=== PATIENT | male | born 1990 | race African-American/Black ===

== ENCOUNTER 2016-04-26 14:41 | Emergency (ER) | payer SELFPAY ==
[2016-04-26 15:09] VITALS: BP 124/59
--- NOTE | 2016-04-26 15:40 | UC ---
Respiratory Complaint HPI - HPI Summary HPI Summary: The patient comes in today for: 1. Poor appetite, cough, nasal congestion, body aches (back pain, headache): Onset: 4 days ago. Palliative/Provocative: Theraflu has helped. Warm beverages help. Quality: Pressure of the sinuses, aching of the lower back, ache of the left head. Region: Sinuses, lower back, and head. Severity: 5/10 Time: Constant. Associated symptoms: Vomiting: x 1 yesterday. Diarrhea: 3-4 liquid brown stools. Fevers: No temperature at home, but sweating at night. Rhinitis: White mucous Cough: green mucous. * - History of Current Complaint Chief Complaint: UCGeneralIllness Stated Complaint: CONGESTION/COUGH/HEADACHE Hx Obtained From: Patient - Allergies/Home Medications Allergies/Adverse Reactions: Allergies Allergy/AdvReac Type Severity Reaction Status Date / Time Erythromycin Allergy Severe Vomiting Verified 04/26/16 15:09 PMH/Surg Hx/FS Hx/Imm Hx Previously Healthy: Yes Endocrine History Of: Denies: Diabetes, Thyroid Disease, Hyperthyroidism, Hypothyroidism, Dyslipidemia Cardiovascular History Of: Denies: Cardiac Disorders, Hypertension, Pacemaker/ICD, Myocardial Infarction , Congestive Heart Failure, Atrial Fibrillation, Deep Vein Thrombosis, Bleeding Disorders Respiratory History Of: Denies: COPD, Asthma, Bronchitis, Pneumonia, Pulmonary Embolism GI/ History Of: Denies: Gastroesophageal Reflux, Ulcer, Gastrointestinal Bleed, Gall Bladder Disease, Kidney Stones, Diverticulitis, Renal Disease, Urosepsis Neurological History Of: Denies: TIA, CVA, Dementia, Seizures, Migraine Psychological History Of: Denies: Anxiety, Depression, Bipolar Disorder, Schizophrenia, Post Traumatic Stress Disorder Cancer History Of: Denies: Lung Cancer, Colorectal Cancer, Breast Cancer, Prostate Cancer, Cervical Cancer Other History Of: Negative For: HIV, Hepatitis B, Anticoagulant Therapy - Surgical History Surgical History: None - Family History Known Family History: Negative: Cardiac Disease, Hypertension, Seizure Disorder, Blood Disorder - Social History Occupation: Employed Full-time Lives: With Family Alcohol Use: Weekly Substance Use Type: None Smoking Status (MU): Light Every Day Tobacco Smoker Type: Cigarettes Amount Used/How Often: 3 PER DAY Length of Time of Smoking/Using Tobacco: 7+ YEARS Review of Systems Constitutional: Negative Skin: Negative Eyes: Negative ENT: Nasal Discharge Respiratory: Cough Cardiovascular: Negative Gastrointestinal: Diarrhea Musculoskeletal: Arthralgia, Myalgia Neurological: Headache All Other Systems Reviewed And Are Negative: Yes Physical Exam Triage Information Reviewed: Yes Appearance: Well-Appearing, No Pain Distress, Well-Nourished Vital Signs: Initial Vital Signs Temp 99.4 F 04/26/16 15:05 Pulse 81 04/26/16 15:05 Resp 16 04/26/16 15:05 BP 124/59 04/26/16 15:05 Pulse Ox 100 04/26/16 15:05 Vital Signs Reviewed: Yes Eyes: Positive: Conjunctiva Clear. Negative: Discharge ENT: Positive: Hearing grossly normal, Nasal drainage. Negative: Pharyngeal erythema, Nasal congestion, TM bulging, TM dull, TM red, Tonsillar swelling, Tonsillar exudate Dental: Negative: Gross Decay/Caries @, Dental Fracture @ Neck: Positive: Supple, Nontender, No Lymphadenopathy. Negative: Nuchal Rigidity Respiratory: Positive: Chest non-tender, Lungs clear, No respiratory distress, No accessory muscle use. Negative: Crackles, Wheezing Cardiovascular: Positive: RRR, No Murmur Abdomen Description: Positive: Nontender, No Organomegaly, Soft. Negative: Distended, Guarding Musculoskeletal: Positive: Strength Intact, ROM Intact Neurological: Positive: Alert, Muscle Tone Normal, Fatigued Psychological: Positive: Age Appropriate Behavior, Consolable Skin: Negative: rashes, breakdown UC Diagnostic Evaluation - Laboratory O2 Sat by Pulse Oximetry: 100 Respiratory Course/Dx - Differential Dx/Diagnosis Differential Diagnosis/HQI/PQRI: Bronchitis, Sinusitis, Other Provider Diagnoses: Viral syndrome. Bronchitis. Sinusitis. Gastroenteritis Discharge - Discharge Plan Condition: Stable Disposition: HOME Patient Education Materials: Sinusitis (ED), Acute Bronchitis (ED), Gastroenteritis (ED), Viral Syndrome (ED) Forms: *Work Release Referrals: No Primary Care Phys,NOPCP [Primary Care Provider] - 1 Week (Please see your primary care provider in about a week to see how well you are doing. If you get worse, please be seen sooner by your primary care provider or us. IF you don't have a primary care provider, please reference the list of local providers included with your discharge papers to get one. )
== END 2016-04-26 16:02 | disposition home or self-care (01) ==
LOC: UCCORT 14:41
DX: B34.9 Viral infection, unspecified (principal); J40 Bronchitis, not specified as acute or chronic; J32.9 Chronic sinusitis, unspecified; K52.9 Noninfective gastroenteritis and colitis, unspecified; Z88.1 Allergy status to other antibiotic agents; F17.210 Nicotine dependence, cigarettes, uncomplicated
CPT/HCPCS: 99212; G0463

== ENCOUNTER 2016-06-26 13:08 | Emergency (ER) | payer SELFPAY ==
[2016-06-26 13:25] VITALS: BP 138/64
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
[2016-06-26] MEDS ORDERED: Ibuprofen TAB* 600 MG PO ONE (13:27)
--- NOTE | 2016-06-26 13:47 | RAD ---
INDICATION: Left fifth finger injury. TECHNIQUE: 3 views of the left fifth finger were obtained. FINDINGS: There is diffuse soft tissue swelling. The bones are normal alignment. No fracture is seen. Joint spaces appear maintained. IMPRESSION: NO EVIDENCE FOR FRACTURE.
== END 2016-06-26 14:00 | disposition home or self-care (01) ==
LOC: UCEAST 13:08
DX: S63.617A Unspecified sprain of left little finger, initial encounter (principal); X58.XXXA Exposure to other specified factors, initial encounter; Y93.89 Activity, other specified; Y92.159 Unspecified place in reform school as the place of occurrence of the external cause; Y99.0 Civilian activity done for income or pay; Z88.1 Allergy status to other antibiotic agents; F17.210 Nicotine dependence, cigarettes, uncomplicated; Z71.6 Tobacco abuse counseling
CPT/HCPCS: 73140; 99212; G0463

== ENCOUNTER 2016-10-08 12:04 | Emergency (ER) | payer SELFPAY ==
--- NOTE | 2016-10-08 13:39 | UC ---
Upper Extremity HPI - HPI Summary HPI Summary: 25 YEAR OLD MALE PRESENTS WITH COMPLAINS OF RIGHT SHOULDER PAIN SECONDARY TO WRESTLING. - History of Current Complaint Chief Complaint: UCUpperExtremity Stated Complaint: SHOULDER INJURY Time Seen by Provider: 10/08/16 13:38 Hx Obtained From: Patient ?: No Onset/Duration: Sudden Onset Severity Initially: Moderate Severity Currently: Moderate Pain Scale Used: 0-10 Numeric - 5 Character: Sharp, Aching Aggravating Factor(s): Movement, Lifting Alleviating Factor(s): Rest Associated Signs And Symptoms: Positive: Negative - Allergies/Home Medications Allergies/Adverse Reactions: Allergies Allergy/AdvReac Type Severity Reaction Status Date / Time Erythromycin Allergy Severe Vomiting Verified 10/08/16 13:13 PMH/Surg Hx/FS Hx/Imm Hx Previously Healthy: Yes Other History Of: Negative For: HIV, Hepatitis B, Anticoagulant Therapy - Surgical History Surgical History: Yes Surgery Procedure, Year, and Place: tonsillectomy as a child. - Family History Known Family History: Negative: Cardiac Disease, Hypertension, Seizure Disorder, Blood Disorder Family History: no medical issues in family lineage - Social History Alcohol Use: Occasionally Substance Use Type: None Smoking Status (MU): Light Every Day Tobacco Smoker Type: Cigarettes Amount Used/How Often: 1 sig PER DAY Length of Time of Smoking/Using Tobacco: 7+ YEARS Review of Systems Constitutional: Negative Skin: Negative Eyes: Negative ENT: Negative Respiratory: Negative Cardiovascular: Negative Gastrointestinal: Negative Genitourinary: Negative Motor: Negative Neurovascular: Negative Musculoskeletal: Other: - RIGHT SHOULDER PAIN Neurological: Negative Psychological: Negative All Other Systems Reviewed And Are Negative: Yes Physical Exam Triage Information Reviewed: Yes Vital Signs: Initial Vital Signs Temp 36.7 C 10/08/16 13:08 Pulse 51 10/08/16 13:08 Resp 20 10/08/16 13:08 BP 125/99 10/08/16 13:08 Pulse Ox 100 10/08/16 13:08 Eye Exam: Normal ENT Exam: Normal Dental Exam: Normal Neck exam: Normal Neck: Positive: 1 Respiratory Exam: Normal Cardiovascular Exam: Normal Abdominal Exam: Normal Musculoskeletal: Positive: Other: - RIGHT SHOULDER PAIN Neurological Exam: Normal Psychological Exam: Normal Skin Exam: Normal Upper Extremity Course/Dx - Differential Dx/Diagnosis Provider Diagnoses: RIGHT IMPINGEMENT SYNDROME Discharge - Discharge Plan Condition: Stable Disposition: HOME Prescriptions: Meloxicam [Mobic] 7.5 mg PO BID #30 tab Methocarbamol TAB* [Robaxin 500 MG TAB*] 500 mg PO TID PRN #30 tab PRN Reason: Spasms Patient Education Materials: Shoulder Pain (ED) Forms: *Work Release Referrals: No Primary Care Phys,NOPCP [Primary Care Provider] -
--- NOTE | 2016-10-08 14:22 | RAD ---
Indication: Right shoulder pain and injury. 4 views of the right shoulder demonstrates no fracture. No other bone or joint abnormality is noted. IMPRESSION: No fracture of the right shoulder is identified.
[2016-10-08 14:37] VITALS: BP 116/72
== END 2016-10-08 14:42 | disposition home or self-care (01) ==
LOC: UCEAST 12:04
DX: M75.41 Impingement syndrome of right shoulder (principal); F17.210 Nicotine dependence, cigarettes, uncomplicated; Z88.1 Allergy status to other antibiotic agents
CPT/HCPCS: 99212; G0463

== ENCOUNTER 2017-01-15 08:51 | Emergency (ER) | payer SELFPAY ==
[2017-01-15 08:59] VITALS: BP 106/78
--- NOTE | 2017-01-15 10:06 | UC ---
Dental HPI - HPI Summary HPI Summary: 26 Y/O male presents with C/O dental pain to L side. States had cap placed on Thursday and began to experience pain again starting on 01/14/17. Denies fever or chills. No noticeable swelling to L side of face. No notable family history of cardiac, endocrine, or other disease. Medications and health history have been reviewed at this visit. - History of Current Complaint Chief Complaint: UCDentalProblem Stated Complaint: DENTAL PAIN Time Seen by Provider: 01/15/17 08:56 Hx Obtained From: Patient Onset/Duration: Gradual Onset Severity: Moderate Pain Intensity: 7 Pain Scale Used: 0-10 Numeric Aggravating Factor(s): Cold, Chewing Alleviating Factor(s): Nothing - Allergies/Home Medications Allergies/Adverse Reactions: Allergies Allergy/AdvReac Type Severity Reaction Status Date / Time Erythromycin Allergy Severe Vomiting Verified 01/15/17 09:00 Home Medications: Home Medications Diphenhydramine-Acetaminophen [Tylenol Pm Extra Strength 500-25 mg] 2 tab PO PRN 01/15/17 [History] Ibuprofen [Ibuprofen 200] 3 tab PO PRN 01/15/17 [History] Penicillin 01/15/17 [History] PMH/Surg Hx/FS Hx/Imm Hx Previously Healthy: Yes Other History Of: Negative For: HIV, Hepatitis B, Anticoagulant Therapy - Surgical History Surgical History: Yes Surgery Procedure, Year, and Place: tonsillectomy as a child. - Family History Known Family History: Negative: Cardiac Disease, Hypertension, Seizure Disorder, Blood Disorder Family History: no medical issues in family lineage - Social History Alcohol Use: Rare Substance Use Type: None Smoking Status (MU): Light Every Day Tobacco Smoker Type: Cigarettes Amount Used/How Often: 1 sig PER DAY Length of Time of Smoking/Using Tobacco: 7+ YEARS Review of Systems Constitutional: Negative Skin: Negative Eyes: Negative ENT: Negative Respiratory: Negative Cardiovascular: Negative Gastrointestinal: Negative Genitourinary: Negative Motor: Negative Neurovascular: Negative Musculoskeletal: Negative Neurological: Negative Psychological: Negative All Other Systems Reviewed And Are Negative: Yes Physical Exam Triage Information Reviewed: Yes Appearance: Well-Appearing Vital Signs: Initial Vital Signs Temp 97.6 F 01/15/17 08:54 Pulse 64 01/15/17 08:54 Resp 18 01/15/17 08:54 BP 106/78 01/15/17 08:54 Pulse Ox 100 01/15/17 08:54 Vital Signs Reviewed: Yes Eye Exam: Normal ENT Exam: Normal ENT: Positive: Dental tenderness - L side Dental Exam: Normal Neck exam: Normal Neck: Positive: Supple, Nontender, No Lymphadenopathy Respiratory Exam: Normal Cardiovascular Exam: Normal Abdominal Exam: Normal Musculoskeletal Exam: Normal Musculoskeletal: Positive: Strength Intact Neurological Exam: Normal Psychological Exam: Normal Skin Exam: Normal Dental Complaint Course/Dx - Differential Dx/Diagnosis Differential Diagnosis/Dx: Dental Abscess, Dental Caries Provider Diagnoses: Dental pain, abscess Discharge - Discharge Plan Condition: Stable Disposition: HOME Prescriptions: Acetaminophen W/ Codeine [Acetaminophen/Codeine #3 300-30 mg] 1 tab PO Q6HR PRN #10 tab MDD 4 PRN Reason: Pain Amoxicillin/Clavulanate TAB* [Augmentin TAB 500 mg*] 500 mg PO TID #20 tab Patient Education Materials: Toothache (ED) Referrals: No Primary Care Phys,NOPCP [Primary Care Provider] - Additional Instructions: Please take medication as directed. Do not exceed 3000mg of Tylenol daily. Please follow up with your dentist. You may return to the Urgent care as needed.
== END 2017-01-15 10:26 | disposition home or self-care (01) ==
LOC: UCEAST 08:51
DX: K04.7 Periapical abscess without sinus (principal); Z72.0 Tobacco use
CPT/HCPCS: 99212; G0463

== ENCOUNTER 2017-02-04 14:43 | Emergency (ER) | payer SELFPAY ==
--- NOTE | 2017-02-04 15:05 | UC ---
Upper Extremity HPI - HPI Summary HPI Summary: 26 y/o male presents to the urgent care c/o Rt pinky fincer pain, swelling and redness s/p playing dodgeball today at work around 0930am. Pt reports he injured same finger last year. He applied ice. Pain is 4/10 at rest and 8/10 with movement. Pt denies numbness of tingling over the Rt hand or finger, fever , SOB, chest pain, N/V/D . - History of Current Complaint Chief Complaint: UCUpperExtremity Stated Complaint: FINGER INJURY Time Seen by Provider: 02/04/17 15:01 Hx Obtained From: Patient Onset/Duration: Sudden Onset, Lasting Hours - 5 hrs, Still Present Severity Currently: Moderate Pain Intensity: 8 - with movement Pain Scale Used: 0-10 Numeric Location Of Pain: Is Discrete @ - RT pinky finger pain s/p injury playing dodgeball Character: Sharp Aggravating Factor(s): Movement, Flexion Alleviating Factor(s): Ice Associated Signs And Symptoms: Positive: Swelling, Redness. Negative: Numbness/ Tingling - Risk Factors Non-Orthopedic Risk Factor: Negative DVT Risk Factors: Negative Septic Arthritis Risk Factor: Negative - Allergies/Home Medications Allergies/Adverse Reactions: Allergies Allergy/AdvReac Type Severity Reaction Status Date / Time Erythromycin Allergy Severe Vomiting Verified 02/04/17 14:55 Home Medications: Home Medications Clindamycin Cap(NF) [Clindamycin Cap 300 mg Cap(NF)] 02/04/17 [History] PMH/Surg Hx/FS Hx/Imm Hx Previously Healthy: Yes - Pt denies PMHX Other History Of: Negative For: HIV, Hepatitis B, Anticoagulant Therapy - Surgical History Surgical History: Yes Surgery Procedure, Year, and Place: tonsillectomy as a child. - Family History Known Family History: Positive: None - Pt denies FMHX Negative: Cardiac Disease, Hypertension, Seizure Disorder, Blood Disorder Family History: no medical issues in family lineage - Social History Occupation: Employed Full-time Lives: With Family Alcohol Use: Rare Substance Use Type: None Smoking Status (MU): Light Every Day Tobacco Smoker Type: Cigarettes Amount Used/How Often: 1 sig PER DAY Length of Time of Smoking/Using Tobacco: 7+ YEARS Review of Systems Constitutional: Negative Skin: Negative Eyes: Negative ENT: Negative Respiratory: Negative Cardiovascular: Negative Gastrointestinal: Negative Genitourinary: Negative Motor: Negative - Rt pinky finger pain, Decreased ROM Musculoskeletal: Other: - RT pinky finger pain and swelling Neurological: Negative Psychological: Negative Is Patient Immunocompromised?: No All Other Systems Reviewed And Are Negative: Yes Physical Exam Triage Information Reviewed: Yes Vital Signs: Initial Vital Signs Temp 98 F 02/04/17 14:56 Pulse 54 02/04/17 14:56 Resp 16 02/04/17 14:56 BP 113/85 02/04/17 14:56 Pulse Ox 100 02/04/17 14:56 - Additional Comments Vital Signs Reviewed: Yes General: Well developed well nourished male sitting in the examining table w/o any apparent distress Eyes: Positive: Conjunctiva Clear - PERRLA, EOMI ENT: Positive: Normal ENT inspection, Hearing grossly normal, Pharynx normal, TMs normal Neck: Positive: Supple, Nontender, No Lymphadenopathy Respiratory: Positive: Chest non-tender, Lungs clear, Normal breath sounds, No respiratory distress Cardiovascular: Positive: RRR, No Murmur, Pulses Normal, Brisk Capillary Refill Abdomen Description: Positive: Nontender, No Organomegaly, Soft. Negative: CVA Tenderness (R), CVA Tenderness (L) Bowel Sounds: Positive: Present Musculoskeletal: Positive: Strength Intact, No Edema, Other: - Hand/Fingers: the R hand is without obvious asymmetry or deformity when compared to the L hand. Positive mild swelling around RT #5 PIPJ and MCPJ, with ecchymosis and point tenderness on palpation on examination. No atrophy, or obvious deformity. no open wounds,bony deformity. Normal cascade of fingers. Decrease ROM due to pain specially with flexion and extension of finger, Pulses and capillary refill WNL, positive reflexes and sensation intact Neurological Exam: Normal Psychological Exam: Normal Skin Exam: Normal Upper Extremity Course/Dx - Course Course Of Treatment: 26 y/o male presents to the urgent care c/o Rt pinky fincer pain, swelling and redness s/p playing dodgeball today at work around 0930am. Pt reports he injured same finger last year. He applied ice. Pain is 4/ 10 at rest and 8/10 with movement. Pt denies numbness of tingling over the Rt hand or finger, fever, SOB, chest pain, N/V/D. Hx obtained. Positive mild swelling around RT #5 PIPJ and MCPJ, with ecchymosis and point tenderness on palpation on examination. RT #5 phalanx X-ray ordered: impression: Nondisplaced fracture of the base of middle phalanx of the RT 5th digit at the PIP. Pt' RT finger immobilized with a finger splint and body tape with #4th digit. Pt given Naproxen PO at the clinic for pain, Rx same medication. Pt advised RICE. F/u with Orthopedic in 2 days for further evaluation and treatment. Pt understood and agreed with D/C instructions. . - Differential Dx/Diagnosis Differential Diagnosis/HQI/PQRI: Contusion, Fracture (Closed), Strain, Sprain Provider Diagnoses: 1- RT #5 phalanx pain s/p injury. 2-Nondiplaced fracture of the base of middle phalanx of the RT 5th digit at the PIP. Discharge - Discharge Plan Condition: Stable Disposition: HOME Prescriptions: Naproxen [Naproxen 500 mg] 500 mg PO Q8H PRN #30 tab PRN Reason: Pain Patient Education Materials: Finger Fracture (ED) Forms: *Work Release Referrals: [facility] [Outside] Landen Lopez MD [Medical Doctor] - 2 Days Additional Instructions: 1-Please take medications as directed to alleviate pain and swelling. 2-Please apply ice, keep your finger immobilized with the splint. Avoid any movement or strenuous exercise with your finger 3- Please f/u with Orthopedic Dr Lopez in 2 days for further evaluation and treatment.
[2017-02-04] MEDS ORDERED: Naproxen TAB* 250 MG PO ONE (15:12)
--- NOTE | 2017-02-04 15:44 | RAD ---
HISTORY: Right fifth digit pain status post trauma COMPARISONS: None VIEWS: 4, Frontal, lateral, and oblique views of the fifth digit of the right hand FINDINGS: BONE DENSITY: Normal. BONES: There is minimal linear lucency along the base of the middle phalanx of the fifth digit at the PIP joint along the volar aspect. JOINTS: There is no arthropathy. ALIGNMENT: There is no dislocation. SOFT TISSUES: Unremarkable. OTHER FINDINGS: None. IMPRESSION: PROBABLE NONDISPLACED FRACTURE OF THE BASE OF THE MIDDLE PHALANX OF THE FIFTH DIGIT AT THE PIP JOINT. RECOMMEND CORRELATION WITH SITE OF PAIN.
[2017-02-04 16:34] VITALS: BP 113/85
== END 2017-02-04 16:03 | disposition home or self-care (01) ==
LOC: UCEAST 14:43
DX: S62.656A Nondisplaced fracture of middle phalanx of right little finger, initial encounter for closed fracture (principal); X58.XXXA Exposure to other specified factors, initial encounter; Y93.69 Activity, other involving other sports and athletics played as a team or group; Y92.89 Other specified places as the place of occurrence of the external cause; F17.210 Nicotine dependence, cigarettes, uncomplicated; Z88.1 Allergy status to other antibiotic agents
CPT/HCPCS: 73140; 99213; A9270-GY; G0463